=== PATIENT | male | born 2005 | race Hispanic/Latino ===

== ENCOUNTER → 2025-01-28 11:28 | Outpatient (REF) | payer OTHER, SELFPAY ==
[2025-01-28 12:08] LABS: % Basophils 0.5 % (0-2); % Eosinophils 0.5 % (0-6); % Immature Granulocytes 0.3 % (0-0.5); % Lymphocytes 24.6 % (20.5-51.1); % Monocytes 5.7 % (1.7-9.3); % Neutrophils 68.4 % (42.2-75.2); Absolute Lymphocytes 1.6 10^3/uL (1.2-3.4); Absolute Monocytes 0.4 10^3/uL (0.1-0.6); Absolute Neutrophils 4.3 10^3/uL (1.4-6.5); Hematocrit 45.6 % (39.0-52.0); Hemoglobin 15.1 g/dL (13.0-18.0); Mean Corp Hgb Conc. 33.1 g/dL (33.0-37.0); Mean Corpuscular Hgb 26.8 pg (27.0-31.0); Mean Corpuscular Volume 80.9 fL (80.0-94.0); Nucleated Red Blood Cells % 0 % (-); Platelet Count 216 10^3/uL (130-400); Red Blood Cell Count 5.64 10^6/uL (4.70-6.10); Red Cell Dist. Width 14.4 % (11.5-14.5); White Blood Cell Count 6.3 10^3/uL (4.8-10.8)
[2025-01-28 12:53] LABS: ALT (SGPT) 19 U/L (0-50); AST (SGOT) 20 U/L (17-59); Albumin 5.2 g/dl (3.5-5.0); Alkaline Phosphatase 128 U/L (38-126); Blood Urea Nitrogen 10 mg/dl (9-20); Calcium 10.3 mg/dl (8.4-10.2); Carbon Dioxide 28 mmol/L (22-30); Chloride 107 mmol/L (98-107); Glucose 111 mg/dl (70-99); HDL Cholesterol 46 mg/dl; LDL Cholesterol, Calculated 127 mg/dl; Potassium 4.6 mmol/L (3.5-5.1); Sodium 144 mmol/L (135-145); Total Bilirubin 0.5 mg/dl (0.2-1.3); Total Cholesterol 209 mg/dl (50-199); Total Protein 8.8 g/dl (6.3-8.2); Triglyceride 183 mg/dl (10-149); Very Low Density Lipoprotein 36 mg/dl (0-30); eGFR > 60.00
[2025-01-28 13:19] LABS: Vitamin D, 25-OH*** 35.4 ng/mL (30-80)
[2025-01-28 13:33] LABS: TSH Reflex To Free T4 4.51 uIU/ml (0.47-4.68)
[2025-01-28 13:56] LABS: Amphetamines Negative (Negative); Barbiturates Negative (Negative); Benzodiazepines Negative (Negative); Buprenorphine Negative (Negative); Cocaine Negative (Negative); Marijuana Negative (Negative); Methadone Negative (Negative); Methamphetamines Negative (Negative); Opiates Negative (Negative); Phencyclidine Negative (Negative); Tricyclic Antidepressants Negative (Negative)
[2025-01-28 14:03] LABS: Urine Albumin Negative (Neg - Trace); Urine Bilirubin Negative (Negative); Urine Character Clear (Clear); Urine Color Yellow; Urine Glucose Negative (Negative); Urine Ketone Negative (Negative); Urine Leukocyte Negative (Negative); Urine Nitrite Negative (Negative); Urine Occult Blood Negative (Negative); Urine Urobilinogen Negative (Neg - 1+)
[2025-01-28 14:08] LABS: Folate 6.4 ng/ml (2.76-20); Vitamin B12 435 pg/ml (239-931)
== END ==
LOC: CLINIC 11:28
PROVIDERS: ATTENDING PHYSICIAN Family Medicine
DX: F41.9 Anxiety disorder, unspecified (principal)
CPT/HCPCS: 36415; 80053; 80061; 80306; 81003; 82306; 82607; 82746; 83835; 84443; 85025